=== PATIENT | female | born 1985 | race Hispanic/Latino ===

== ENCOUNTER 2018-05-14 20:56 | Emergency (ER) | payer OTHER ==
--- NOTE | 2018-05-14 22:01 | ED PDOC ---
History of Present Illness History of Present Illness: 32 year old female presents to the Emergency Department for evaluation of a burning sensation in the lungs when she coughs and takes deep breath x 1 day. Patient states she had flu like symptoms 3 days ago. Denies fever, chills, chest pain, nausea, vomiting, recent travels, leg pain/swelling, OCP use, smoking, recent surgery/hospitalization, sick contact, and other associated symptoms. <Phoebe Lechuga PA-C - Last Filed: 05/15/18 00:44> HPI: Influenza History Per: Patient Exam Limitations: no limitations Onset/Duration Of Symptoms: Days <Phoebe Lechuga PA-C - Last Filed: 05/15/18 00:44> <Daren Parker - Last Filed: 05/15/18 16:36> Time Seen by Provider: 05/14/18 21:46 Past Medical History - Provider Review Nursing Documentation Reviewed: Yes - Travel History Have you recently traveled outside [place] w/in the past 3 mons?: No - Infectious Disease Hx of Infectious Diseases: None - Psychiatric Hx Substance Use: No - Anesthesia Hx Anesthesia: No <Phoebe Lechuga PA-C - Last Filed: 05/15/18 00:44> Patient Medical History - Provider Review Nursing Documentation Reviewed: Yes - Infectious Disease Hx of Infectious Diseases: None Past Surgical History: No Previous <Phoebe Lechuga PA-C - Last Filed: 05/15/18 00:44> Family/Social History Family/Social History: Unknown Family HX Smoking Status: Never Smoked Hx Alcohol Use: No Hx Substance Use: No <Phoebe Lechuga PA-C - Last Filed: 05/15/18 00:44> Allergies/Home Meds <Phoebe Lechuga PA-C - Last Filed: 05/15/18 00:44> <Daren Parker - Last Filed: 05/15/18 16:36> Allergies/Adverse Reactions: Allergies No Known Allergies Allergy (Verified 08/28/16 14:05) Review of Systems - Physician Review All systems were reviewed & negative as marked: Yes - Review of Systems Constitutional: absent: Fevers Respiratory: Other (burning sensaton when taking deep breaths and coughing.) Cardiovascular: absent: Chest Pain Gastrointestinal: absent: Nausea, Vomiting <Phoebe Lechuga PA-C - Last Filed: 05/15/18 00:44> Physical Exam Temperature: Afebrile Blood Pressure: Normal Pulse: Regular Respiratory Rate: Normal Appearance: Positive for: Well-Appearing, Non-Toxic, Comfortable Pain Distress: None (Patient is coughing) Mental Status: Positive for: Alert and Oriented X 3 - Systems Exam Head: Present: Atraumatic, Normocephalic Pupils: Present: PERRL Extroacular Muscles: Present: EOMI Mouth: Present: Moist Mucous Membranes Pharnyx: Present: Normal. No: ERYTHEMA, EXUDATE Neck: Present: Normal Range of Motion. No: Meningeal Signs, Lymphadenopathy Respiratory/Chest: Present: Clear to Auscultation, Good Air Exchange. No: Respiratory Distress, Accessory Muscle Use, Wheezes, Rales, Rhonchi Cardiovascular: Present: Regular Rate and Rhythm, Normal S1, S2. No: Murmurs Abdomen: No: Tenderness, Distention, Peritoneal Signs Upper Extremity: Present: Normal Inspection, Normal ROM (x2). No: Cyanosis, Edema Lower Extremity: Present: Normal Inspection, Normal ROM (x2). No: Edema Neurological: Present: GCS=15, CN II-XII Intact, Speech Normal, Motor Func Grossly Intact, Normal Sensory Function Skin: Present: Warm, Dry, Normal Color. No: Rashes Psychiatric: Present: Alert, Oriented x 3, Normal Insight, Normal Concentration <Phoebe Lechuga PA-C - Last Filed: 05/15/18 00:44> Vital Signs Temp Pulse Resp BP Pulse Ox 05/14/18 22:26 98.8 F 106 H 18 116/85 100 05/14/18 21:50 98.6 F 115 H 16 129/90 97 <Daren Parker - Last Filed: 05/15/18 16:36> Medical Decision Making ED Course and Treatment: Plan: --Urine HCG --Chest X-ray --Duoneb x1 uhcg (-) Chest X-Ray : NAD, as read by AD On reevaluation, patient denies any chest pain or shortness of breath. On exam, patient remains awake alert and oriented 3 in no acute distress. Diagnostic results d/w the patient. Dx of bronchitis d/w the patient. Advised to follow up with pmd or referral provided in 1-2 days without fail. Advised to take medication as prescribed. Return to the emergency room at any time for any new or worsening symptoms. Patient states she fully agrees with and understands discharge instructions. States that she agrees with the plan and disposition. Verbalized and repeated discharge instructions and plan. I have given the patient opportunity to ask any additional questions. - RAD Interpretation Radiology Orders: 05/14/18 21:53 CHEST TWO VIEWS (PA/LAT) [RAD] Stat <Phoebe Lechuga PA-C - Last Filed: 05/15/18 00:44> - RAD Interpretation Radiology Orders: 05/14/18 21:53 CHEST TWO VIEWS (PA/LAT) [RAD] Stat - Medication Orders Current Medication Orders: Discontinued Medications Albuterol/Ipratropium (Duoneb 3 Mg/0.5 Mg (3 Ml) Ud) 3 ml IH STAT STA Stop: 05/14/18 22:06 Guaifenesin (Robitussin) 200 mg PO ONCE ONE Stop: 05/14/18 22:06 <Daren Parker - Last Filed: 05/15/18 16:36> Disposition/Present on Arrival - Present on Arrival Any Indicators Present on Arrival: No History of DVT/PE: No History of Uncontrolled Diabetes: No Urinary Catheter: No History of Decub. Ulcer: No History Surgical Site Infection Following: None - Disposition Have Diagnosis and Disposition been Completed?: Yes Disposition Time: 23:15 Patient Plan: Discharge <Phoebe Lechuga PA-C - Last Filed: 05/15/18 00:44> <Daren Parker - Last Filed: 05/15/18 16:36> - Disposition Diagnosis: Acute bronchitis Disposition: HOME/ ROUTINE Condition: STABLE Discharge Instructions (ExitCare): Acute Bronchitis Additional Instructions: Thank you for letting us take care of you today. You were treated for acute bronchitis. The emergency medical care you received today was directed at your acute symptoms. If you were prescribed any medication, please fill it and take as directed. It may take several days for your symptoms to resolve. Return to the Emergency Department if your symptoms worsen, do not improve, or if you have any other problems. Please contact your doctor in 2 days for re-evaluation and follow up. Bring any paperwork you were given at discharge with you along with any medications you are taking to your follow up visit. Our treatment cannot replace ongoing medical care by a primary care provider (PCP) outside of the emergency department. Thank you for allowing the [facility] team to be part of your care today. If you had an X-Ray : A Radiologist will review the ED reading if any change in treatment is needed we will contact you. Prescriptions: RX: Guaifenesin [Adult Tussin Chest Congestion] 200 mg PO Q6H PRN #200 ml PRN Reason: Cough RX: Nebulizer [Aeroeclipse II] 1 each MC DAILY #1 each Albuterol 0.083% [Albuterol Sulfate 3 Ml] 3 ml IH Q4 #100 neb Referrals: [facility] [place] - Follow up with primary Forms: WORK NOTE - PA / SILO ERECTOR / Resident Statement / has reviewed & agrees with the documentation as recorded. - Scribe Statement The provider has reviewed the documentation as recorded by the Scribe (Ghada Gutierrez) <Phoebe Lechuga PA-C - Last Filed: 05/15/18 00:44> - PA / SILO ERECTOR / Resident Statement / has reviewed & agrees with the documentation as recorded. <Daren Parker - Last Filed: 05/15/18 16:36>
[2018-05-14 22:02] VITALS: BMI 27.1
[2018-05-14] MEDS ORDERED: guaiFENesin 200 mg/10 ml Syrup UD PO ONE (22:05)
[2018-05-14] MEDS ORDERED: Albuterol-Ipratrop 3 mg / 0.5 (3 ml) UD IH STA (22:05)
[2018-05-14 22:28] VITALS: TEMP 98.8; O2SAT 100
[2018-05-14 23:57] VITALS: BP 120/78; PULSE 97; RESP 19
--- NOTE | 2018-05-15 08:56 | RAD ---
Date of service: 05/14/2018 HISTORY: cough COMPARISON: No prior. TECHNIQUE: Chest PA and lateral FINDINGS: LUNGS: No active pulmonary disease. PLEURA: No significant pleural effusion identified. No pneumothorax apparent. CARDIOVASCULAR: Normal. OSSEOUS STRUCTURES: No significant abnormalities. VISUALIZED UPPER ABDOMEN: Normal. OTHER FINDINGS: None. IMPRESSION: No active disease.
== END 2018-05-14 23:56 | disposition home or self-care (01) ==
LOC: ED 20:56
DX: J20.9 Acute bronchitis, unspecified (principal)

== ENCOUNTER 2018-11-05 16:13 | Emergency (ER) | payer OTHER ==
[2018-11-05 16:14] VITALS: BMI 27.1
[2018-11-05 16:23] VITALS: BP 124/83; PULSE 97; RESP 18; TEMP 99; O2SAT 98
--- NOTE | 2018-11-05 16:50 | ED PDOC ---
Arrival/HPI - General Historian: Patient - History of Present Illness Narrative History of Present Illness (Text): 11/05/18 16:47 32-year-old female complaining of pain to the plantar aspect of her left foot, states that she stepped on a staple yesterday, states that the staple barely made a puncture wound to her skin and she removed it immediately, however since then she has been having pain and swelling to the ball of her foot and she is having pain anytime she walks. Otherwise reports no redness, discharge, fever, chills, numbness, decrease in range of motion, other joint pain. <Phoebe Lechuga PA-C - Last Filed: 11/05/18 17:44> <Williams Montgomery - Last Filed: 11/05/18 18:00> - General Chief Complaint: Lower Extremity Problem/Injury Time Seen by Provider: 11/05/18 16:16 Past Medical History - Infectious Disease Hx of Infectious Diseases: None - Psychiatric Hx Substance Use: No - Past Surgical History Past Surgical History: No Previous - Anesthesia Hx Anesthesia: No Hx Anesthesia Reactions: No Hx Malignant Hyperthermia: No <Phoebe Lechuga PA-C - Last Filed: 11/05/18 17:44> Family/Social History Family/Social History: No Known Family HX Smoking Status: Never Smoked Hx Alcohol Use: No Hx Substance Use: No <Phoebe Lechuga PA-C - Last Filed: 11/05/18 17:44> Allergies/Home Meds <Phoebe Lechuga PA-C - Last Filed: 11/05/18 17:44> <Williams Montgomery - Last Filed: 11/05/18 18:00> Allergies/Adverse Reactions: Allergies No Known Allergies Allergy (Verified 08/28/16 14:05) Review of Systems - Review of Systems Constitutional: absent: Fatigue, Fevers Musculoskeletal: Arthralgias. absent: Back Pain, Neck Pain, Joint Swelling, Myalgias Skin: absent: Rash, Skin Lesions, Laceration <Phoebe Lechuga PA-C - Last Filed: 11/05/18 17:44> Physical Exam Vital Signs Temp Pulse Resp BP Pulse Ox 11/05/18 16:14 99 F 97 H 18 124/83 98 Temperature: Afebrile Blood Pressure: Normal Pulse: Regular Respiratory Rate: Normal Appearance: Positive for: Well-Appearing, Non-Toxic, Comfortable Pain Distress: None Mental Status: Positive for: Alert and Oriented X 3 - Systems Exam Head: Present: Atraumatic, Normocephalic Upper Extremity: Present: Normal Inspection, Normal ROM. No: Edema Lower Extremity: Present: NORMAL PULSES, Normal ROM, Tenderness (L foot : +tender callus to the distal plantar aspect of the foot with mild edema, no erythema, no laceration, no d/c, no FB.), Neurovascularly Intact, Capillary Refill < 2 s. No: Edema, Deformity, Temperature Abnormalties Neurological: Present: GCS=15, CN II-XII Intact, Speech Normal, Motor Func Grossly Intact, Normal Sensory Function Skin: Present: Warm, Dry, Normal Color. No: Rashes Psychiatric: Present: Alert, Oriented x 3, Normal Insight, Normal Concentration <Phoebe Lechuga PA-C - Last Filed: 11/05/18 17:44> Vital Signs Temp Pulse Resp BP Pulse Ox 11/05/18 16:14 99 F 97 H 18 124/83 98 <Williams Montgomery - Last Filed: 11/05/18 18:00> Medical Decision Making ED Course and Treatment: 11/05/18 16:51 Patient offered XRs of the L foot, which she refused. Tdap IM and naprosyn PO ordered. Advised to follow up with podiatry referral in 1-2 days without fail. Advised to take medication as prescribed. Return to the emergency room at any time for any new or worsening symptoms. Patient states she fully agrees with and understands discharge instructions. States that she agrees with the plan and disposition. Verbalized and repeated discharge instructions and plan. I have given the patient opportunity to ask any additional questions. <Phoebe Lechuga PA-C - Last Filed: 11/05/18 17:44> - Medication Orders Current Medication Orders: Discontinued Medications Naproxen (Anaprox Ds) 550 mg PO ONCE STA Stop: 11/05/18 16:53 Last Admin: 11/05/18 16:57 Dose: 550 mg Tetanus/Reduced Diphtheria/Acell Pertussis (Boostrix Vaccine Inj) 0.5 ml IM .ONCE ONE Stop: 11/05/18 16:53 Last Admin: 11/05/18 16:58 Dose: 0.5 ml Immunization Registry Document 11/05/18 16:58 BB (Rec: 11/05/18 16:58 BB [id number]) [facility]-Date provided 11/05/18 MAR Immunization Data Document 11/05/18 16:58 BB (Rec: 11/05/18 16:58 BB [id number]) Immunization Data Vaccine Information Sheet Given Yes <Williams Montgomery - Last Filed: 11/05/18 18:00> - PA / VISUAL ASSOCIATE / Resident Statement SHERRY has reviewed & agrees with the documentation as recorded. <Phoebe Lechuga PA-C - Last Filed: 11/05/18 17:44> - PA / VISUAL ASSOCIATE / Resident Statement SHERRY has reviewed & agrees with the documentation as recorded. <Williams Montgomery - Last Filed: 11/05/18 18:00> Disposition/Present on Arrival - Present on Arrival Any Indicators Present on Arrival: No History of DVT/PE: No History of Uncontrolled Diabetes: No Urinary Catheter: No History of Decub. Ulcer: No History Surgical Site Infection Following: None - Disposition Have Diagnosis and Disposition been Completed?: Yes Disposition Time: 16:45 Patient Plan: Discharge <Phoebe Lechuga PA-C - Last Filed: 11/05/18 17:44> <Williams Montgomery - Last Filed: 11/05/18 18:00> - Disposition Diagnosis: Foot pain, left, Callus of foot Disposition: HOME/ ROUTINE Condition: STABLE Discharge Instructions (ExitCare): Corns and Calluses, Contusion (DC) Additional Instructions: Thank you for letting us take care of you today. You were treated for L foot pain, callus. The emergency medical care you received today was directed at your acute symptoms. If you were prescribed any medication, please fill it and take as directed. It may take several days for your symptoms to resolve. Return to the Emergency Department if your symptoms worsen, do not improve, or if you have any other problems. Please contact your doctor in 2 days for re-evaluation and follow up / or call one of the physicians/clinics you have been referred to that are listed on the Patient Visit Information form that is included in your discharge packet. Bring any paperwork you were given at discharge with you along with any medications you are taking to your follow up visit. Our treatment cannot replace ongoing medical care by a primary care provider (PCP) outside of the emergency d epartment. Thank you for allowing the [facility] team to be part of your care today. Prescriptions: Naproxen 500 mg PO BID #30 tab Referrals: [facility] [Outside] - Follow up with primary Podiatry Clinic [Outside] - Follow up with primary Jefferson Reyes DPM [Staff Provider] - Follow up with primary Forms: [employer] (Spanish), WORK NOTE
[2018-11-05] MEDS ORDERED: Naproxen 550 mg Tab PO STA (16:52)
[2018-11-05] MEDS ORDERED: TDAP Vaccine 0.5 mL Syr IM ONE (16:52)
== END 2018-11-05 17:13 | disposition home or self-care (01) ==
LOC: ED 16:13
DX: M79.672 Pain in left foot (principal); L84 Corns and callosities